=== PATIENT | female | born 1930 ===

== ENCOUNTER 2018-02-28 17:53 | Emergency (ER) | payer MEDICARE, MEDICAID ==
[2018-02-28 17:57] VITALS: RESP 16
--- NOTE | 2018-02-28 19:03 | ED PDOC ---
HPI: General Adult Time Seen by Provider: 02/28/18 18:08 Chief Complaint (Nursing): Dizziness/Lightheaded Chief Complaint (Provider): Medication refill History Per: Patient, Other (friends) Additional Complaint(s): 87yo female, with history of dementia, anxiety, hypertension, brought to ER by EMS for evaluation. Patient states she ran out of her hypertension medications 2 days ago and has not taken anything since; patient's friends were concerned as her blood pressure was elevated, prompting the ER visit. Patient currently denies any dizziness, chest pain, shortness of breath, leg swelling, headache, blurry vision. She has no medical complaints. PMD: Dr. Morrison Past Medical History Reviewed: Historical Data, Nursing Documentation, Vital Signs Vital Signs: Last Vital Signs Temp 98.4 F 02/28/18 21:45 Pulse 79 02/28/18 21:45 Resp 16 02/28/18 21:45 BP 132/76 02/28/18 21:45 Pulse Ox 98 02/28/18 21:45 - Medical History PMH: Alzheimer's Disease, Arthritis, Dementia, HTN, Kidney Stones, Chronic Kidney Disease Denies: Fractures, HIV - Surgical History Surgical History: - Family History Family History: States: Unknown Family Hx - Home Medications Home Medications: Ambulatory Orders Medication Instructions Recorded Amlodipine Besylate [Norvasc] 5 mg PO DAILY 12/14/15 Clopidogrel [Plavix] 75 mg PO DAILY 12/14/15 Losartan Potassium [Cozaar] 100 mg PO DAILY 12/14/15 Donepezil [Aricept] 10 mg PO HS 01/16/16 Escitalopram [Lexapro] 10 mg PO DAILY 01/16/16 Memantine [Namenda] 10 mg PO BID 01/16/16 Multivitamin/Iron/Folic Acid 1 tab PO DAILY 01/16/16 [Centrum Complete Multivit Tab] Metoprolol Tartrate [Lopressor] 25 mg PO BID #14 tab 11/06/16 Escitalopram [Lexapro] 5 mg PO DAILY #30 tab 02/28/18 amLODIPine [Norvasc] 5 mg PO DAILY #30 tab 02/28/18 - Allergies Allergies/Adverse Reactions: Allergies Allergy/AdvReac Type Severity Reaction Status Date / Time Penicillins Allergy ANAPHYLAXIS Verified 02/28/18 17:55 Review of Systems ROS Statement: Except As Marked, All Systems Reviewed And Found Negative (as per HPI) Eyes: Negative for: Vision Change Cardiovascular: Negative for: Chest Pain, Light Headedness Neurological: Negative for: Headache, Dizziness Physical Exam - Reviewed Nursing Documentation Reviewed: Yes - Physical Exam Appears: Positive for: Non-toxic, No Acute Distress Head Exam: Positive for: ATRAUMATIC, NORMOCEPHALIC Skin: Positive for: Warm, Dry Eye Exam: Positive for: EOMI, PERRL ENT: Negative for: Pharyngeal Erythema, Tonsillar Exudate Neck: Positive for: Painless ROM, Supple Cardiovascular/Chest: Positive for: Regular Rate, Rhythm. Negative for: Murmur Respiratory: Positive for: Normal Breath Sounds. Negative for: Respiratory Distress Gastrointestinal/Abdominal: Positive for: Soft. Negative for: Tenderness Back: Positive for: Normal Inspection. Negative for: Decreased ROM Extremity: Positive for: Normal ROM. Negative for: Deformity Lymphatic: Negative for: Adenopathy Neurologic/Psych: Positive for: Alert, Oriented (x 3). Negative for: Motor/ Sensory Deficits - ECG O2 Sat by Pulse Oximetry: 96 (RA) Pulse Ox Interpretation: Normal Medical Decision Making Medical Decision Making: Impression: Medication refill Plan: -- Called patient's pharmacy [facility] in [place], and patient reported to have run out of her Amlodopine. Prescription refilled and transmitted to [facility]. Patient instructed to follow up with Dr. Morrison in 2-3 days. Scribe Attestation: Documented by Alana Lawson acting as a scribe for Yulissa Dang MD. Provider Attestation: All medical record entries made by the Scribe were at my direction and personally dictated by me. I have reviewed the chart and agree that the record accurately reflects my personal performance of the history, physical exam, medical decision making, and the department course for this patient. I have also personally directed, reviewed, and agree with the discharge instructions and disposition. Disposition - Clinical Impression Clinical Impression: Medication refill - Disposition Referrals: Jackson Morrison MD [Staff Provider] - ([facility]) Disposition: Routine/Home Disposition Time: 21:00 Condition: GOOD Prescriptions: amLODIPine [Norvasc] 5 mg PO DAILY #30 tab Escitalopram [Lexapro] 5 mg PO DAILY #30 tab Instructions: High Blood Pressure (DC) Print Language: CANADIAN
[2018-02-28 21:46] VITALS: BP 132/76; PULSE 79; TEMP 98.4
[2018-03-03 14:02] VITALS: O2SAT 96
== END 2018-02-28 21:47 | disposition home or self-care (01) ==
LOC: H.ER 17:53
DX: Z76.0 Encounter for issue of repeat prescription (principal); F02.80 Dementia in other diseases classified elsewhere, unspecified severity, without behavioral disturbance, psychotic disturbance, mood disturbance, and anxiety; G30.9 Alzheimer's disease, unspecified; I12.9 Hypertensive chronic kidney disease with stage 1 through stage 4 chronic kidney disease, or unspecified chronic kidney disease; Z88.0 Allergy status to penicillin

== ENCOUNTER 2018-02-28 23:03 | Emergency (ER) | payer MEDICARE, MEDICAID ==
[2018-02-28 23:26] VITALS: BP 130/78; PULSE 70; RESP 18; TEMP 97.8; O2SAT 99
== END 2018-03-01 00:14 | disposition home or self-care (01) ==
LOC: H.ER 23:03
DX: Z02.89 Encounter for other administrative examinations (principal)